=== PATIENT | male | born 2005 | race Caucasian/White ===

== ENCOUNTER 2024-11-22 08:13 | Emergency (ER) | payer OTHER ==
[~2024-11-22] VITALS: Ht 172.7 cm; Wt 49.8 kg
[2024-11-22 08:15] VITALS: TEMP 98
[2024-11-22 08:57] LABS: STREP A SCREEN NEGATIVE (Neg)
[2024-11-22] MEDS: diphenhydrAMINE 25 MG/10 ML UD oral solution PO ONE (08:57)
[2024-11-22] MEDS: dexamethasone sod phosphate 10mg/ml inj PO STA (08:57)
[2024-11-22 09:39] VITALS: BP 99/62; PULSE 74; RESP 14; O2SAT 98
== END 2024-11-22 09:41 | disposition home or self-care (01) ==
LOC: ER 08:13
DX: J02.8 Acute pharyngitis due to other specified organisms (principal); B97.89 Other viral agents as the cause of diseases classified elsewhere; F17.200 Nicotine dependence, unspecified, uncomplicated; F12.90 Cannabis use, unspecified, uncomplicated
CPT/HCPCS: 87081; 87880; 99283; J1100; Q0163